=== PATIENT | female | born 1935 | race Caucasian/White ===

== ENCOUNTER → 2017-03-26 09:44 | Outpatient (CLI) | payer MEDICARE, OTHER, SELFPAY ==
[2017-03-26 15:45] LABS: Absolute Lymphocyte Count 0.97 X10^3/ul (0.83-4.51); Absolute Neutrophil Count 3.5 X10^3/uL (2.0-7.7); Basophil# 0.04 X10^3/uL; Basophil% 0.7 % (0-1); Eosinophil# 0.11 X10^3/uL; Eosinophils% 1.8 % (0-5); Hematocrit 44.6 % (37-47); Hemoglobin 14.1 g/dl (12.0-15.0); Lymphocyte # 0.97 X10^3/ul (4.0); Lymphocyte % 16.2 % (19-41); Mean Corp Hgb Conc 31.6 g/gl (32-36); Mean Corpuscular Hgb 30.2 pg (27.0-32.0); Mean Corpuscular Volume 95.5 fL (81-99); Mean Platelet Vol. 11.2 fl (6.2-12.0); Monocyte# 1.41 X10^3/uL; Monocyte% 23.5 % (0-10); Neutrophil # 3.46 X10^3/uL (2.7-7.7); Neutrophil % 57.6 % (47-70); Platelet Count 246 K/mm3 (150-450); RBC Distribution Width CV 14.2 % (11.6-14.6); RBC Distribution Width SD 49.4 fl (35.1-43.9); Red Blood Count 4.67 M/mm3 (4.2-5.4)
[2017-03-26 15:47] LABS: POSITIVE COUNT NO; POSITIVE DIFFERENTIAL NO; POSITIVE MORPHOLOGY NO
[2017-03-26 16:09] LABS: ALB/GLOB Ratio 0.8 RATIO (0.9-2.4); AST(SGOT) 22 U/L (15-37); Alanine Aminotransfer ALT/SGPT 22 U/L (13-56); Albumin, Serum 3.4 g/dL (3.2-5.0); Alkaline Phosphatase 85 U/L (45-117); Anion Gap 6 (5-15); BUN 11 mg/dL (7-18); BUN/Creat Ratio 13.5 RATIO (10-20); Calcium,Total 8.6 mg/dL (8.5-10.1); Chloride 102 mmol/L (98-107); Cholesterol 260 mg/dL (200); Creatinine, Serum 0.82 mg/dL (0.55-1.02); EST Glomerular Filtration Rate 71 mL/min (>60); Est Glom Filt Rate - Afr Amer 86 mL/min (>60); Glucose 108 mg/dL (70-110); High Density Lipoprotein 60 mg/dL; Protein, Total 7.4 g/dL (6.4-8.2); Sodium Level 138 mmol/L (136-145); Thyroid Stim Hormone (TSH) 2.24 uIU/mL (0.358-3.74); Triglycerides 116 mg/dL; Very Low Density Lipoprotein 23 mg/dL (5-40)
[2017-03-27 10:07] LABS: Vitamin D,25 Hydroxy 22.5 ng/mL (19.95-100.01)
== END ==
PROVIDERS: Family Provider Family Medicine Geriatric Medicine; PCP Family Medicine Geriatric Medicine; Visit Provider Family Medicine Geriatric Medicine
DX: E55.9 Vitamin D deficiency, unspecified (principal); E78.4 Other hyperlipidemia; I10 Essential (primary) hypertension; E03.9 Hypothyroidism, unspecified
CPT/HCPCS: 36415; 80053; 80061; 82306; 84443; 85025

== ENCOUNTER → 2017-06-24 12:53 | Outpatient (CLI) | payer MEDICARE, OTHER, SELFPAY ==
--- NOTE | 2017-06-24 13:05 | CT_ITS ---
STUDY: CT LEFT TIBIA/FIBULA WITH CONTRAST REASON FOR EXAM: Left lower leg pain and swelling for one week, painful to touch, no specific injury. TECHNIQUE: Transaxial CT imaging of the tibia/fibula was performed post contrast administration. The examination was performed with intravenous administration of 100 ml of Isovue 300 contrast material. Sagittal and coronal images were reconstructed. Individualized dose optimization techniques were used for this CT. COMPARISON: None. FINDINGS: Normal left tibia/fibula. There is mild soft tissue swelling at the medial and lateral aspects of the distal lower leg/ankle (axial images 110-149). There is no enhancing abnormality. There is a posterior calcaneal enthesophyte (sagittal reconstructions 22-28). CT/Extremity Lower WITH Contrast IMPRESSION: Mild soft tissue swelling. No demonstrated soft tissue abscess. Electronically Signed: Deep Bailey MD at 14:59 EDT Tel , Service support ,
[2017-06-24 13:30] LABS: Absolute Lymphocyte Count 1.87 X10^3/ul (0.83-4.51); Absolute Neutrophil Count 6.5 X10^3/uL (2.0-7.7); Basophil# 0.04 X10^3/uL; Basophil% 0.4 % (0-1); Eosinophil# 0.17 X10^3/uL; Eosinophils% 1.7 % (0-5); Hematocrit 43.5 % (37-47); Hemoglobin 14.2 g/dl (12.0-15.0); Lymphocyte # 1.87 X10^3/ul (4.0); Lymphocyte % 19.2 % (19-41); Mean Corp Hgb Conc 32.6 g/gl (32-36); Mean Corpuscular Hgb 30.9 pg (27.0-32.0); Mean Corpuscular Volume 94.8 fL (81-99); Mean Platelet Vol. 11.4 fl (6.2-12.0); Monocyte# 1.19 X10^3/uL; Monocyte% 12.2 % (0-10); Neutrophil # 6.46 X10^3/uL (2.7-7.7); Neutrophil % 66.3 % (47-70); Platelet Count 265 K/mm3 (150-450); RBC Distribution Width SD 47.4 fl (35.1-43.9); Red Blood Count 4.59 M/mm3 (4.2-5.4); White Blood Count 9.8 K/mm3 (4.4-11.0)
[2017-06-24 13:38] LABS: ALB/GLOB Ratio 0.9 RATIO (0.9-2.4); AST(SGOT) 21 U/L (15-37); Alanine Aminotransfer ALT/SGPT 20 U/L (13-56); Albumin, Serum 3.5 g/dL (3.2-5.0); Alkaline Phosphatase 83 U/L (45-117); Anion Gap 2 (5-15); BUN 18 mg/dL (7-18); Calcium,Total 9.4 mg/dL (8.5-10.1); Chloride 104 mmol/L (98-107); Cholesterol 277 mg/dL (200); Creatinine, Serum 0.78 mg/dL (0.55-1.02); EST Glomerular Filtration Rate 75 mL/min (>60); Est Glom Filt Rate - Afr Amer 91 mL/min (>60); Globulin 4.1 g/dL (2.2-4.2); Glucose 84 mg/dL (74-106); High Density Lipoprotein 66 mg/dL; Potassium 4.3 mmol/L (3.5-5.1); Protein, Total 7.6 g/dL (6.4-8.2); Sodium Level 139 mmol/L (136-145); Thyroid Stim Hormone (TSH) 2.16 uIU/mL (0.358-3.74); Triglycerides 109 mg/dL; Very Low Density Lipoprotein 22 mg/dL (5-40)
[2017-06-24 13:43] LABS: POSITIVE COUNT NO; POSITIVE DIFFERENTIAL NO; POSITIVE MORPHOLOGY NO
[2017-06-24 13:59] LABS: Vitamin D,25 Hydroxy 26.5 ng/mL (29.95-100.01)
== END ==
PROVIDERS: Family Provider Family Medicine Geriatric Medicine; PCP Family Medicine Geriatric Medicine; Visit Provider Family Medicine Geriatric Medicine
DX: R22.42 Localized swelling, mass and lump, left lower limb (principal); M79.605 Pain in left leg; E55.9 Vitamin D deficiency, unspecified; E78.4 Other hyperlipidemia; I10 Essential (primary) hypertension
CPT/HCPCS: 36415; 73701; 80053; 80061; 82306; 84443; 85025; Q9967

== ENCOUNTER 2017-08-19 13:01 | Emergency (ER) | payer MEDICARE, OTHER, SELFPAY ==
[2017-08-19 13:03] VITALS: BP 132/82; PULSE 108; RESP 17; TEMP 36.6; O2SAT 93; BMI 30.7
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
[2017-08-19] MEDS: Ondansetron 4 MG/2 ML Vial IV (14:03)
[2017-08-19] MEDS: 0.9% Normal Saline 1,000 ML 1000 ML IV (14:03)
[2017-08-19 14:04] VITALS: BP 93/75; PULSE 106; RESP 17; O2SAT 92; O2SAT 95
[2017-08-19] MEDS: Morphine 2 MG/ML Syringe IV (14:04)
[2017-08-19 14:11] LABS: Absolute Lymphocyte Count 3.25 X10^3/ul (0.83-4.51); Absolute Neutrophil Count 11.7 X10^3/uL (2.0-7.7); Basophil# 0.05 X10^3/uL; Basophil% 0.3 % (0-1); Eosinophil# 0.12 X10^3/uL; Eosinophils% 0.7 % (0-5); Hematocrit 42.1 % (37-47); Hemoglobin 13.6 g/dl (12.0-15.0); Lymphocyte # 3.25 X10^3/ul (4.0); Lymphocyte % 19.6 % (19-41); Mean Corp Hgb Conc 32.3 g/gl (32-36); Mean Corpuscular Hgb 30.4 pg (27.0-32.0); Mean Corpuscular Volume 94.2 fL (81-99); Mean Platelet Vol. 10.7 fl (6.2-12.0); Monocyte% 8.4 % (0-10); Neutrophil # 11.69 X10^3/uL (2.7-7.7); Neutrophil % 70.6 % (47-70); POSITIVE COUNT NO; POSITIVE DIFFERENTIAL NO; POSITIVE MORPHOLOGY NO; Platelet Count 278 K/mm3 (150-450); RBC Distribution Width CV 13.3 % (11.6-14.6); RBC Distribution Width SD 45.5 fl (35.1-43.9); Red Blood Count 4.47 M/mm3 (4.2-5.4); White Blood Count 16.6 K/mm3 (4.4-11.0)
[2017-08-19 14:28] LABS: Anion Gap 12 (5-15); BUN 17 mg/dL (7-18); Calcium,Total 9.4 mg/dL (8.5-10.1); Chloride 103 mmol/L (98-107); Creatinine, Serum 0.95 mg/dL (0.55-1.02); EST Glomerular Filtration Rate 60 mL/min (>60); Est Glom Filt Rate - Afr Amer 73 mL/min (>60); Estimated Creatinine Clearance 39.43 ml/min; Glucose 161 mg/dL (74-106); Potassium 4.4 mmol/L (3.5-5.1); Sodium Level 139 mmol/L (136-145)
[2017-08-19 14:38] LABS: International Normalized Ratio 1.1
== END 2017-08-19 14:22 | disposition short-term general hospital (02) ==
LOC: ED 14:06
PROVIDERS: Emergency Provider Emergency Medicine; Family Provider Family Medicine Geriatric Medicine; PCP Family Medicine Geriatric Medicine
DX: S20.211A Contusion of right front wall of thorax, initial encounter (principal); R10.9 Unspecified abdominal pain; R09.02 Hypoxemia; M25.512 Pain in left shoulder; M54.2 Cervicalgia; R11.0 Nausea; V89.2XXA Person injured in unspecified motor-vehicle accident, traffic, initial encounter; Y93.9 Activity, unspecified; Y92.9 Unspecified place or not applicable; Z86.39 Personal history of other endocrine, nutritional and metabolic disease; Z79.82 Long term (current) use of aspirin; Z79.899 Other long term (current) drug therapy
CPT/HCPCS: 71045; 80048; 85025; 85610; 96374; 96375; 99285; J7030; A4216; J2405

== ENCOUNTER → 2017-08-30 09:42 | Outpatient (CLI) | payer MEDICARE, OTHER, SELFPAY ==
[2017-08-30 13:06] LABS: Hematocrit 36.7 % (37-47); Hemoglobin 11.8 g/dl (12.0-15.0); Mean Corp Hgb Conc 32.2 g/gl (32-36); Mean Corpuscular Hgb 31.4 pg (27.0-32.0); Mean Corpuscular Volume 97.6 fL (81-99); Mean Platelet Vol. 10.4 fl (6.2-12.0); Platelet Count 460 K/mm3 (150-450); RBC Distribution Width CV 15.2 % (11.6-14.6); RBC Distribution Width SD 50.9 fl (35.1-43.9); Red Blood Count 3.76 M/mm3 (4.2-5.4); White Blood Count 15.2 K/mm3 (4.4-11.0)
[2017-08-30 13:08] LABS: Scan Indicated on CBC? Y/N NO
== END ==
PROVIDERS: Family Provider Family Medicine Geriatric Medicine; PCP Family Medicine Geriatric Medicine
DX: S22.39XA Fracture of one rib, unspecified side, initial encounter for closed fracture (principal)
CPT/HCPCS: 36415; 85027

== ENCOUNTER → 2017-12-31 16:21 | Outpatient (CLI) | payer MEDICARE, OTHER, SELFPAY ==
[2017-12-31 16:56] LABS: Absolute Lymphocyte Count 3.02 X10^3/ul (0.83-4.51); Absolute Neutrophil Count 5.1 X10^3/uL (2.0-7.7); Basophil# 0.05 X10^3/uL; Basophil% 0.5 % (0-1); Eosinophil# 0.25 X10^3/uL; Eosinophils% 2.6 % (0-5); Hematocrit 44.3 % (37-47); Hemoglobin 13.8 g/dl (12.0-15.0); Lymphocyte # 3.02 X10^3/ul (4.0); Lymphocyte % 31.4 % (19-41); Mean Corp Hgb Conc 31.2 g/gl (32-36); Mean Corpuscular Hgb 28.8 pg (27.0-32.0); Mean Corpuscular Volume 92.5 fL (81-99); Mean Platelet Vol. 11.6 fl (6.2-12.0); Monocyte# 1.23 X10^3/uL; Monocyte% 12.8 % (0-10); Neutrophil # 5.07 X10^3/uL (2.7-7.7); Neutrophil % 52.6 % (47-70); Platelet Count 253 K/mm3 (150-450); RBC Distribution Width CV 14.3 % (11.6-14.6); RBC Distribution Width SD 48.5 fl (35.1-43.9); Red Blood Count 4.79 M/mm3 (4.2-5.4); White Blood Count 9.6 K/mm3 (4.4-11.0)
[2017-12-31 17:00] LABS: POSITIVE COUNT NO; POSITIVE DIFFERENTIAL NO; POSITIVE MORPHOLOGY NO
[2017-12-31 17:32] LABS: ALB/GLOB Ratio 0.8 RATIO (0.9-2.4); AST(SGOT) 19 U/L (15-37); Alanine Aminotransfer ALT/SGPT 18 U/L (13-56); Albumin, Serum 3.4 g/dL (3.2-5.0); Alkaline Phosphatase 87 U/L (45-117); Anion Gap 5 (5-15); BUN 11 mg/dL (7-18); BUN/Creat Ratio 17.1 RATIO (10-20); Calcium,Total 8.6 mg/dL (8.5-10.1); Chloride 105 mmol/L (98-107); Creatinine, Serum 0.64 mg/dL (0.55-1.02); EST Glomerular Filtration Rate 94 mL/min (>60); Est Glom Filt Rate - Afr Amer 113 mL/min (>60); Glucose 88 mg/dL (74-106); Potassium 3.8 mmol/L (3.5-5.1); Protein, Total 7.4 g/dL (6.4-8.2); Sodium Level 141 mmol/L (136-145); Thyroid Stim Hormone (TSH) 0.44 uIU/mL (0.358-3.74)
[2017-12-31 17:34] LABS: Vitamin D,25 Hydroxy 45.9 ng/mL (29.95-100.01)
== END ==
PROVIDERS: Family Provider Family Medicine Geriatric Medicine; PCP Family Medicine Geriatric Medicine; Visit Provider Family Medicine Geriatric Medicine
DX: E55.9 Vitamin D deficiency, unspecified (principal); R53.83 Other fatigue
CPT/HCPCS: 36415; 80053; 82306; 84443; 85025

== ENCOUNTER 2018-01-29 12:54 | Emergency (ER) | payer MEDICARE, OTHER, SELFPAY ==
[2018-01-29 12:56] VITALS: BP 180/79; PULSE 77; RESP 18; TEMP 36.3; O2SAT 96; BMI 29.8
--- NOTE | 2018-01-29 13:10 | EKG12_ITS ---
Test Reason : LT ARM PAIN Blood Pressure : / mmHG Vent. Rate : 073 BPM Atrial Rate : 073 BPM P-R Int : 162 ms QRS Dur : 072 ms QT Int : 426 ms P-R-T Axes : 053 069 019 degrees QTc Int : 469 ms Normal sinus rhythm Normal ECG Confirmed by CARLOS SANTOS, XOCHITL ([id number]), photography editor KANE CORLEY ([id number]) on 01/31/2018 2:36:58 PM Referred By: JESSE Confirmed By:XOCHITL GONZALEZ MD
--- NOTE | 2018-01-29 13:15 | RAD_ITS ---
STUDY: X-RAY CHEST REASON FOR EXAM: Female, 82 years old. Upper back pain with left upper extremity radiation. TECHNIQUE: Single AP portable view of the chest. COMPARISON: Comparison is made with prior study dated August 19, 2017. FINDINGS: EKG electrodes are seen. Stable increased linear markings at the left lung base suggestive of a left basilar scarring. There is no demonstrated pleural abnormality. Normal size heart. Normal mediastinum and angelica. Normal visualized pulmonary arteries. There is atherosclerotic calcification of the aortic arch with tortuosity. There are degenerative changes of the visualized thoracic spine. Normal visualized ribs, clavicles, and shoulders. There is no demonstrated abnormality of the visualized soft tissue structures of the upper abdomen. RAD/Chest 1 View (Portable) IMPRESSION: Stable mild increased linear markings at the left lung base suggests of left basilar linear scarring. Electronically Signed: Fransisco Terrell MD at 13:39 EST Tel [phone], Service support ,
[2018-01-29] MEDS: Aspirin 81 MG TAB.CHEW 324 MG PO (13:17)
--- NOTE | 2018-01-29 13:24 | ED.DCSUM_ITS ---
- ER Visit Summary Date of Service: 01/29/18 Chief Complaint: Back pain History of Present Illness: The patient is a 82 F who reports getting up around 11 AM this morning. She states she shortly after developed back pain between her shoulder blades. The pain started to radiate toward her left arm. She be came concerned that it the pain was coming from her heart. She states the pain is currently improved. She denies shortness of breath or sweats with the episode. She denies paresthesias. Pain did not radiate to the anterior chest or down her back. Past history is significant for reflux, hypothyroid, high cholesterol, depression, back pain. Physical Examination: Vital signs on arrival include a blood pressure of 180/79. At the time of my exam her blood pressure is 149/85. Patient sitting upright in bed no acute distress. Head neck examination is unremarkable. Heart is regular rate and rhythm. Lung sounds are clear. Abdomen is soft nontender. Back examination reveals no reproducible tenderness. Extremity examination reveals strong distal pulses throughout. Test Results: EKG is sinus at 73 with no sign of acute ischemia. CBC and chemistry studies normal. Troponin negative. Portal chest x-ray shows stable mild increased linear markings in the left lung base suggestive of scarring. Emergency Department Course and Treatment: She was given aspirin on arrival. On repeat evaluation she is resting comfortably. Test results are discussed with the patient and daughter. We collectively agreed to do a repeat troponin and EKG 3 hours after the initial set. Repeat EKG is unchanged and repeat troponin remains less than 0.015. On final repeat eval patient is resting comfortably. Test results are discussed with her and daughter. They are both reassured with these findings and feel comfortable with discharge to home. If her symptoms recur or worsen she is to return for repeat evaluation. Treatment Plan: [] Disposition: Discharge Impression: Back pain, improved This note was generated with [employer] dictation software. It may contain incorrect words, spelling, and punctuation that were not noted in review of the chart kiet or to signing ED Disposition - Plan for ED Patient: Chief Complaint: Upper Extremity Injury Referrals: Matt Romero Chi, MD [Primary Care Provider] -
[2018-01-29] MEDS: 0.9% Normal Saline 1,000 ML 150 ML IV (13:29)
[2018-01-29 13:38] VITALS: O2SAT 97
[2018-01-29 13:41] LABS: Absolute Lymphocyte Count 2.68 X10^3/ul (0.83-4.51); Absolute Neutrophil Count 4.8 X10^3/uL (2.0-7.7); Basophil# 0.03 X10^3/uL; Basophil% 0.3 % (0-1); Eosinophil# 0.19 X10^3/uL; Eosinophils% 2.2 % (0-5); Hematocrit 44.3 % (37-47); Hemoglobin 14.3 g/dl (12.0-15.0); Lymphocyte # 2.68 X10^3/ul (4.0); Lymphocyte % 30.9 % (19-41); Mean Corp Hgb Conc 32.3 g/gl (32-36); Mean Corpuscular Hgb 29.5 pg (27.0-32.0); Mean Corpuscular Volume 91.5 fL (81-99); Mean Platelet Vol. 10.7 fl (6.2-12.0); Monocyte# 0.96 X10^3/uL; Monocyte% 11.1 % (0-10); Neutrophil % 55.4 % (47-70); POSITIVE COUNT NO; POSITIVE DIFFERENTIAL NO; POSITIVE MORPHOLOGY NO; Platelet Count 261 K/mm3 (150-450); RBC Distribution Width SD 50.5 fl (35.1-43.9); Red Blood Count 4.84 M/mm3 (4.2-5.4); White Blood Count 8.7 K/mm3 (4.4-11.0)
[2018-01-29 13:56] LABS: Anion Gap 6 (5-15); BUN 11 mg/dL (7-18); Calcium,Total 8.9 mg/dL (8.5-10.1); Chloride 106 mmol/L (98-107); Creatinine, Serum 0.69 mg/dL (0.55-1.02); EST Glomerular Filtration Rate 87 mL/min (>60); Est Glom Filt Rate - Afr Amer 105 mL/min (>60); Estimated Creatinine Clearance 36.81 ml/min; Glucose 89 mg/dL (74-106); Potassium 4.1 mmol/L (3.5-5.1); Sodium Level 143 mmol/L (136-145)
--- NOTE | 2018-01-29 16:00 | EKG12_ITS ---
Test Reason : Blood Pressure : / mmHG Vent. Rate : 067 BPM Atrial Rate : 067 BPM P-R Int : 166 ms QRS Dur : 080 ms QT Int : 432 ms P-R-T Axes : 039 083 -10 degrees QTc Int : 456 ms Sinus rhythm with Premature atrial complexes Abnormal QRS-T angle, consider primary T wave abnormality Abnormal ECG Confirmed by CARLOS SANTOS, XOCHITL ([id number]), medical transcription editor KANE CORLEY ([id number]) on 01/31/2018 2:38:52 PM Referred By: JESSE Confirmed By:XOCHITL GONZALEZ MD
--- NOTE | 2018-01-29 17:03 | ED.DEP ---
ED Disposition - Plan for ED Patient: Disposition: Home or Assisted Living Chief Complaint: Upper Extremity Injury Instructions: ED Neck Back Pain General, ED Chest Pain Atypical Unkn Cause Referrals: Matt Romero Chi, MD [Primary Care Provider] - 1-2 Weeks
[2018-01-29 17:22] VITALS: BP 148/87; PULSE 73; RESP 21; O2SAT 95
== END 2018-01-29 17:23 | disposition home or self-care (01) ==
PROVIDERS: Emergency Provider Emergency Medicine; Family Provider Family Medicine Geriatric Medicine; PCP Family Medicine Geriatric Medicine
DX: M54.9 Dorsalgia, unspecified (principal); K21.9 Gastro-esophageal reflux disease without esophagitis; E03.9 Hypothyroidism, unspecified; E78.00 Pure hypercholesterolemia, unspecified; F32.9 Major depressive disorder, single episode, unspecified; Z79.899 Other long term (current) drug therapy
CPT/HCPCS: 36415; 71045; 80048; 84484; 85025; 93005; 96360; 96361; 99285; J7030

== ENCOUNTER → 2018-02-13 14:35 | Outpatient (CLI) | payer MEDICARE, OTHER, SELFPAY ==
[2018-01-29 12:56] VITALS: BMI 29.8
--- NOTE | 2018-02-13 14:38 | RAD_ITS ---
STUDY: X-RAY - LEFT SHOULDER REASON FOR EXAM: Female, 82 years old. Increasing left shoulder pain. TECHNIQUE: 4 view(s) of the shoulder. COMPARISON: None. FINDINGS: Normal glenohumeral articulation. Normal acromioclavicular joint. Normal acromion. Normal humeral head and visualized proximal humerus. The soft tissue structures are unremarkable. Left basilar infiltrate. RAD/Shoulder min 2 Views IMPRESSION: Normal x-ray examination of the shoulder. Left basilar infiltrate. Electronically Signed: Fransisco Terrell MD at 15:01 EST Tel [phone], Service support ,
== END ==
PROVIDERS: Family Provider Family Medicine Geriatric Medicine; PCP Family Medicine Geriatric Medicine; Referring Provider Family Medicine Geriatric Medicine; Visit Provider Family Medicine Geriatric Medicine
DX: M25.512 Pain in left shoulder (principal)
CPT/HCPCS: 73030

== ENCOUNTER → 2018-02-21 15:58 | Outpatient (CLI) | payer MEDICARE, OTHER, SELFPAY ==
[2018-01-29 12:56] VITALS: BMI 29.8
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
== END ==
PROVIDERS: Family Provider Family Medicine Geriatric Medicine; PCP Family Medicine Geriatric Medicine; Visit Provider Family Medicine Geriatric Medicine
DX: Z12.31 Encounter for screening mammogram for malignant neoplasm of breast (principal)
CPT/HCPCS: 77063; 77067

== ENCOUNTER → 2018-02-28 13:15 | Outpatient (CLI) | payer MEDICARE, SELFPAY ==
[2018-01-29 12:56] VITALS: BMI 29.8
--- NOTE | 2018-02-28 13:20 | US_ITS ---
STUDY: ULTRASOUND BREAST - RIGHT REASON FOR EXAM: Female, 82 years old. Palpable lump in the right breast. TECHNIQUE: Axial and longitudinal images of the RIGHT breast were performed with a high resolution ultrasound transducer. COMPARISON: Comparison is made with prior mammogram dated February 21, 2018. FINDINGS: RIGHT Breast: The palpable abnormality corresponds to a 6.1 cm x 5.1 cm x 3.6 cm complex inhomogeneous mass with irregular borders and posterior shadowing. This is highly suggestive of a carcinoma. A biopsy is recommended. US/Breast Limited Unilateral IMPRESSION: 6.1 cm x 5.1 sided by 3.6 cm inhomogeneous irregular mass corresponding to the palpable abnormality. A biopsy strongly recommended. ASSESSMENT CATEGORY: BIRADS Category 5: Highly Suggestive of Malignancy - Appropriate Action Should Be Taken. A letter regarding these results will be sent to the patient by the facility within 30 days. Electronically Signed: Fransisco Terrell MD at 15:41 EST Tel [phone], Service support ,
== END ==
PROVIDERS: Family Provider Family Medicine Geriatric Medicine; PCP Family Medicine Geriatric Medicine; Referring Provider Family Medicine Geriatric Medicine; Visit Provider Family Medicine Geriatric Medicine
DX: N63.10 Unspecified lump in the right breast, unspecified quadrant (principal); R92.8 Other abnormal and inconclusive findings on diagnostic imaging of breast
CPT/HCPCS: 76642

== ENCOUNTER → 2018-03-05 16:48 | Outpatient (CLI) | payer MEDICARE, SELFPAY ==
[2018-03-05 13:46] VITALS: BMI 29.8
== END ==
PROVIDERS: Family Provider Family Medicine Geriatric Medicine; PCP Family Medicine Geriatric Medicine; Referring Provider Surgery; Visit Provider Surgery
DX: N64.89 Other specified disorders of breast (principal); N63.10 Unspecified lump in the right breast, unspecified quadrant
CPT/HCPCS: 87205

== ENCOUNTER → 2018-04-01 16:03 | Outpatient (CLI) | payer MEDICARE, SELFPAY ==
[2018-03-05 13:46] VITALS: BMI 29.8
[2018-04-01 16:50] LABS: Absolute Lymphocyte Count 2.43 X10^3/ul (0.83-4.51); Absolute Neutrophil Count 10.4 X10^3/uL (2.0-7.7); Basophil# 0.02 X10^3/uL; Basophil% 0.1 % (0-1); Eosinophil# 0.03 X10^3/uL; Eosinophils% 0.2 % (0-5); Hematocrit 46.8 % (37-47); Hemoglobin 15.1 g/dl (12.0-15.0); Lymphocyte # 2.43 X10^3/ul (4.0); Mean Corp Hgb Conc 32.3 g/gl (32-36); Mean Corpuscular Hgb 30.6 pg (27.0-32.0); Mean Corpuscular Volume 94.7 fL (81-99); Mean Platelet Vol. 11.2 fl (6.2-12.0); Monocyte# 1.34 X10^3/uL; Monocyte% 9.4 % (0-10); Neutrophil # 10.44 X10^3/uL (2.7-7.7); Platelet Count 273 K/mm3 (150-450); RBC Distribution Width CV 14.3 % (11.6-14.6); RBC Distribution Width SD 48.2 fl (35.1-43.9); Red Blood Count 4.94 M/mm3 (4.2-5.4); White Blood Count 14.3 K/mm3 (4.4-11.0)
[2018-04-01 16:53] LABS: POSITIVE COUNT NO; POSITIVE DIFFERENTIAL NO; POSITIVE MORPHOLOGY NO
[2018-04-01 17:24] LABS: ALB/GLOB Ratio 0.8 RATIO (0.9-2.4); AST(SGOT) 14 U/L (15-37); Alanine Aminotransfer ALT/SGPT 21 U/L (13-56); Albumin, Serum 3.4 g/dL (3.2-5.0); Alkaline Phosphatase 86 U/L (45-117); Anion Gap 8 (5-15); BUN 16 mg/dL (7-18); BUN/Creat Ratio 26.1 RATIO (10-20); Calcium,Total 8.7 mg/dL (8.5-10.1); Chloride 107 mmol/L (98-107); Creatinine, Serum 0.61 mg/dL (0.55-1.02); EST Glomerular Filtration Rate 99 mL/min (>60); Est Glom Filt Rate - Afr Amer 120 mL/min (>60); Glucose 81 mg/dL (74-106); Potassium 4.3 mmol/L (3.5-5.1); Protein, Total 7.4 g/dL (6.4-8.2); Sodium Level 142 mmol/L (136-145); Thyroid Stim Hormone (TSH) 0.51 uIU/mL (0.358-3.74)
== END ==
PROVIDERS: Family Provider Family Medicine Geriatric Medicine; PCP Family Medicine Geriatric Medicine; Visit Provider Family Medicine Geriatric Medicine
DX: E55.9 Vitamin D deficiency, unspecified (principal); I10 Essential (primary) hypertension
CPT/HCPCS: 36415; 80053; 82306; 84443; 85025

== ENCOUNTER → 2018-06-30 | Outpatient (CLI) | payer MEDICARE, SELFPAY ==
[2018-03-05 13:46] VITALS: BMI 29.8
[2018-06-30 17:07] LABS: Absolute Lymphocyte Count 2.42 X10^3/ul (0.83-4.51); Absolute Neutrophil Count 7.1 X10^3/uL (2.0-7.7); Basophil# 0.04 X10^3/uL; Basophil% 0.4 % (0-1); Eosinophil# 0.21 X10^3/uL; Hematocrit 47.1 % (37-47); Lymphocyte # 2.42 X10^3/ul (4.0); Lymphocyte % 22.9 % (19-41); Mean Corp Hgb Conc 31.8 g/gl (32-36); Mean Corpuscular Hgb 30.3 pg (27.0-32.0); Mean Corpuscular Volume 95.2 fL (81-99); Mean Platelet Vol. 11.2 fl (6.2-12.0); Monocyte% 7.6 % (0-10); Neutrophil # 7.08 X10^3/uL (2.7-7.7); Neutrophil % 66.9 % (47-70); Platelet Count 278 K/mm3 (150-450); RBC Distribution Width CV 14.3 % (11.6-14.6); RBC Distribution Width SD 48.1 fl (35.1-43.9); Red Blood Count 4.95 M/mm3 (4.2-5.4); White Blood Count 10.6 K/mm3 (4.4-11.0)
[2018-06-30 17:08] LABS: POSITIVE COUNT NO; POSITIVE DIFFERENTIAL NO; POSITIVE MORPHOLOGY NO
[2018-06-30 17:19] LABS: Vitamin D,25 Hydroxy 32.2 ng/mL (29.95-100.01)
[2018-06-30 19:33] LABS: BUN 16 mg/dL (7-18); Glucose 128 mg/dL (74-106)
[2018-06-30 19:34] LABS: AST(SGOT) 18 U/L (15-37); Albumin, Serum 3.3 g/dL (3.2-5.0); BUN/Creat Ratio 20.5 RATIO (10-20); Calcium,Total 8.8 mg/dL (8.5-10.1); Creatinine, Serum 0.78 mg/dL (0.55-1.02)
[2018-06-30 19:35] LABS: Alanine Aminotransfer ALT/SGPT 24 U/L (13-56); Alkaline Phosphatase 89 U/L (45-117); Anion Gap 7 (5-15); Chloride 105 mmol/L (98-107); Potassium 4.1 mmol/L (3.5-5.1); Sodium Level 143 mmol/L (136-145)
[2018-06-30 20:13] LABS: ALB/GLOB Ratio 0.8 RATIO (0.9-2.4); EST Glomerular Filtration Rate 75 mL/min (>60); Est Glom Filt Rate - Afr Amer 90 mL/min (>60); Globulin 4.4 g/dL (2.2-4.2); Protein, Total 7.7 g/dL (6.4-8.2)
== END | disposition home or self-care (01) ==
LOC: POLAB3 14:10
PROVIDERS: Family Provider Family Medicine Geriatric Medicine; PCP Family Medicine Geriatric Medicine; Visit Provider Family Medicine Geriatric Medicine
DX: E55.9 Vitamin D deficiency, unspecified (principal); E78.5 Hyperlipidemia, unspecified; I10 Essential (primary) hypertension
CPT/HCPCS: 36415; 80053; 82306; 84443; 85025

== ENCOUNTER → 2018-09-18 | Outpatient (CLI) | payer MEDICARE, SELFPAY ==
[2018-03-05 13:46] VITALS: BMI 29.8
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
== END | disposition home or self-care (01) ==
LOC: OPBI 14:05
PROVIDERS: Family Provider Family Medicine Geriatric Medicine; PCP Family Medicine Geriatric Medicine; Referring Provider Surgery; Visit Provider Surgery
DX: R92.8 Other abnormal and inconclusive findings on diagnostic imaging of breast (principal)
CPT/HCPCS: 76642; 77061; 77065; G0279

== ENCOUNTER → 2018-10-02 | Outpatient (CLI) | payer MEDICARE, SELFPAY ==
[2018-03-05 13:46] VITALS: BMI 29.8
[2018-10-02 17:00] LABS: Absolute Lymphocyte Count 2.66 X10^3/uL (0.83-4.51); Absolute Neutrophil Count 7.7 X10^3/uL (2.0-7.7); Basophil# 0.07 X10^3/uL; Basophil% 0.6 % (0-1); Eosinophil# 0.26 X10^3/uL; Eosinophils% 2.2 % (0-5); Hematocrit 43.5 % (37-47); Lymphocyte # 2.66 X10^3/ul (4.0); Lymphocyte % 22.7 % (19-41); Mean Corp Hgb Conc 32.2 g/dL (32-36); Mean Corpuscular Hgb 30.1 pg (27.0-32.0); Mean Corpuscular Volume 93.5 fL (81-99); Mean Platelet Vol. 11.3 fl (6.2-12.0); Monocyte# 1.01 X10^3/uL; Monocyte% 8.6 % (0-10); NRBC Flagged by Analyzer 0 % (0-5); Neutrophil # 7.68 X10^3/uL (2.7-7.7); Neutrophil % 65.4 % (47-70); Platelet Count 262 K/mm3 (150-450); RBC Distribution Width CV 13.2 % (11.6-14.6); RBC Distribution Width SD 45.1 fl (35.1-43.9); Red Blood Count 4.65 M/mm3 (4.2-5.4); White Blood Count 11.7 K/mm3 (4.4-11.0)
[2018-10-02 17:51] LABS: Vitamin D,25 Hydroxy 31.9 ng/mL (29.95-100.01)
[2018-10-02 17:52] LABS: ALB/GLOB Ratio 0.8 RATIO (0.9-2.4); AST(SGOT) 24 U/L (15-37); Alanine Aminotransfer ALT/SGPT 24 U/L (13-56); Albumin, Serum 3.4 g/dL (3.2-5.0); Alkaline Phosphatase 80 U/L (45-117); Anion Gap 10 (5-15); BUN 13 mg/dL (7-18); BUN/Creat Ratio 18.8 RATIO (10-20); Calcium,Total 9.1 mg/dL (8.5-10.1); Chloride 104 mmol/L (98-107); Creatinine, Serum 0.69 mg/dL (0.55-1.02); EST Glomerular Filtration Rate 86 mL/min (>60); Est Glom Filt Rate - Afr Amer 104 mL/min (>60); Glucose 83 mg/dL (74-106); Protein, Total 7.4 g/dL (6.4-8.2); Sodium Level 141 mmol/L (136-145); Thyroid Stim Hormone (TSH) 0.56 uIU/mL (0.358-3.74)
== END | disposition home or self-care (01) ==
LOC: POLAB3 13:28
PROVIDERS: Family Provider Family Medicine Geriatric Medicine; PCP Family Medicine Geriatric Medicine; Visit Provider Family Medicine Geriatric Medicine
DX: E55.9 Vitamin D deficiency, unspecified (principal); I10 Essential (primary) hypertension
CPT/HCPCS: 36415; 80053; 82306; 84443; 85025

== ENCOUNTER → 2018-11-25 | Outpatient (REF) | payer MEDICARE, SELFPAY ==
[2018-03-05 13:46] VITALS: BMI 29.8
[2018-11-25 08:27] LABS: Hematocrit 43.6 % (37-47); Hemoglobin 13.9 g/dL (12.0-15.0); Mean Corp Hgb Conc 31.9 g/dL (32-36); Mean Corpuscular Hgb 29.9 pg (27.0-32.0); Mean Corpuscular Volume 93.8 fL (81-99); Platelet Count 252 K/mm3 (150-450); RBC Distribution Width CV 13.4 % (11.6-14.6); RBC Distribution Width SD 46.3 fl (35.1-43.9); Red Blood Count 4.65 M/mm3 (4.2-5.4); White Blood Count 8.7 K/mm3 (4.4-11.0)
[2018-11-25 08:43] LABS: Vitamin D,25 Hydroxy 30.8 ng/mL (29.95-100.01)
[2018-11-25 08:58] LABS: Anion Gap 6 (5-15); BUN 11 mg/dL (7-18); BUN/Creat Ratio 16.6 RATIO (10-20); Calcium,Total 8.8 mg/dL (8.5-10.1); Chloride 108 mmol/L (98-107); Creatinine, Serum 0.66 mg/dL (0.55-1.02); EST Glomerular Filtration Rate 91 mL/min (>60); Est Glom Filt Rate - Afr Amer 110 mL/min (>60); Glucose 108 mg/dL (74-106); Potassium 4.1 mmol/L (3.5-5.1); Sodium Level 143 mmol/L (136-145); Thyroid Stim Hormone (TSH) 0.52 uIU/mL (0.358-3.74)
== END | disposition home or self-care (01) ==
LOC: OLS.WHLTSB 06:45
PROVIDERS: Visit Provider Family Medicine
DX: E03.9 Hypothyroidism, unspecified (principal); I10 Essential (primary) hypertension; E55.9 Vitamin D deficiency, unspecified
CPT/HCPCS: 36415; 80048; 82306; 84443; 85027

== ENCOUNTER → 2019-03-03 05:00 | Outpatient (REF) | payer MEDICARE, SELFPAY ==
[2018-03-05 13:46] VITALS: BMI 29.8
[2019-03-03 07:32] LABS: Hematocrit 41.4 % (37-47); Hemoglobin 13.3 g/dL (12.0-15.0); Mean Corp Hgb Conc 32.1 g/dL (32-36); Mean Corpuscular Hgb 29.6 pg (27.0-32.0); Mean Platelet Vol. 10.5 fl (6.2-12.0); Platelet Count 260 K/mm3 (150-450); RBC Distribution Width CV 14.3 % (11.6-14.6); RBC Distribution Width SD 48.5 fl (35.1-43.9); White Blood Count 8.1 K/mm3 (4.4-11.0)
[2019-03-03 07:54] LABS: Anion Gap 1 (5-15); BUN 8 mg/dL (7-18); BUN/Creat Ratio 12.4 RATIO (10-20); Calcium,Total 8.9 mg/dL (8.5-10.1); Chloride 108 mmol/L (98-107); Creatinine, Serum 0.65 mg/dL (0.55-1.02); EST Glomerular Filtration Rate 93 mL/min (>60); Est Glom Filt Rate - Afr Amer 112 mL/min (>60); Glucose 126 mg/dL (74-106); Potassium 4.2 mmol/L (3.5-5.1); Sodium Level 139 mmol/L (136-145); Thyroid Stim Hormone (TSH) 1.62 uIU/mL (0.358-3.74)
== END ==
LOC: OLS.WHLTSB 05:00
PROVIDERS: Family Provider Family Medicine Geriatric Medicine; PCP Family Medicine Geriatric Medicine; Visit Provider Family Medicine
DX: I10 Essential (primary) hypertension (principal)
CPT/HCPCS: 36415; 80048; 84443; 85027

== ENCOUNTER → 2019-03-23 11:03 | Outpatient (CLI) | payer MEDICARE, SELFPAY ==
[2018-03-05 13:46] VITALS: BMI 29.8
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
== END ==
PROVIDERS: PCP Family Medicine Geriatric Medicine; Referring Provider Surgery; Visit Provider Surgery
DX: R92.8 Other abnormal and inconclusive findings on diagnostic imaging of breast (principal)
CPT/HCPCS: 76642

== ENCOUNTER → 2019-04-29 12:45 | Outpatient (REF) | payer MEDICARE, SELFPAY ==
[2019-03-25 13:50] VITALS: BMI 29.8
[2019-04-29 14:52] LABS: Erythrocyte Sedimentation Rate 42 mm/hr (0-30)
[2019-04-29 14:55] LABS: Hematocrit 40.3 % (37-47); Hemoglobin 12.5 g/dL (12.0-15.0); Mean Corpuscular Volume 88.8 fL (81-99); Red Blood Count 4.54 M/mm3 (4.2-5.4); White Blood Count 10.5 K/mm3 (4.4-11.0)
[2019-04-29 14:56] LABS: Absolute Lymphocyte Count 1.86 X10^3/uL (0.83-4.51); Absolute Neutrophil Count 7.6 X10^3/uL (2.0-7.7); Basophil# 0.05 X10^3/uL; Basophil% 0.5 % (0-1); Eosinophil# 0.17 X10^3/uL; Eosinophils% 1.6 % (0-5); Lymphocyte # 1.86 X10^3/ul (4.0); Lymphocyte % 17.8 % (19-41); Mean Corpuscular Hgb 27.5 pg (27.0-32.0); Mean Platelet Vol. 10.6 fl (6.2-12.0); Monocyte# 0.66 X10^3/uL; Monocyte% 6.3 % (0-10); NRBC Flagged by Analyzer 0 % (0-5); Neutrophil % 72.7 % (47-70); Platelet Count 281 K/mm3 (150-450); RBC Distribution Width CV 13.5 % (11.6-14.6); RBC Distribution Width SD 43.8 fl (35.1-43.9)
== END ==
LOC: OLS.WHLTSB 12:45
PROVIDERS: PCP Family Medicine Geriatric Medicine; Visit Provider Family Medicine
DX: I10 Essential (primary) hypertension (principal); F01.50 Vascular dementia, unspecified severity, without behavioral disturbance, psychotic disturbance, mood disturbance, and anxiety; R60.9 Edema, unspecified; L03.116 Cellulitis of left lower limb; E55.9 Vitamin D deficiency, unspecified
CPT/HCPCS: 36415; 85025; 85652

== ENCOUNTER → 2019-04-30 15:21 | Outpatient (CLI) | payer MEDICARE, SELFPAY ==
[2019-03-25 13:50] VITALS: BMI 29.8
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
== END ==
PROVIDERS: PCP Family Medicine Geriatric Medicine; Referring Provider Family Medicine
DX: R51 Headache (principal)
CPT/HCPCS: 70450

== ENCOUNTER → 2019-07-14 06:00 | Outpatient (REF) | payer MEDICARE, SELFPAY ==
[2019-03-25 13:50] VITALS: BMI 29.8
[2019-07-14 08:18] LABS: Hematocrit 44.1 % (37-47); Hemoglobin 14.1 g/dL (12.0-15.0); Mean Corpuscular Hgb 29.6 pg (27.0-32.0); Mean Corpuscular Volume 92.6 fL (81-99); Mean Platelet Vol. 11.6 fl (6.2-12.0); Platelet Count 252 K/mm3 (150-450); RBC Distribution Width CV 16.5 % (11.6-14.6); RBC Distribution Width SD 56.3 fl (35.1-43.9); Red Blood Count 4.76 M/mm3 (4.2-5.4); White Blood Count 7.7 K/mm3 (4.4-11.0)
[2019-07-14 09:18] LABS: Anion Gap 10 (5-15); BUN 12 mg/dL (7-18); BUN/Creat Ratio 13.3 RATIO (10-20); Calcium,Total 9.3 mg/dL (8.5-10.1); Chloride 98 mmol/L (98-107); EST Glomerular Filtration Rate 63 mL/min (>60); Est Glom Filt Rate - Afr Amer 76 mL/min (>60); Glucose 108 mg/dL (74-106); Sodium Level 138 mmol/L (136-145)
== END ==
LOC: OLS.WHLTSB 06:00
PROVIDERS: PCP Family Medicine Geriatric Medicine; Visit Provider Family Medicine
DX: I10 Essential (primary) hypertension (principal)
CPT/HCPCS: 36415; 80048; 84443; 85027

== ENCOUNTER → 2019-08-14 05:00 | Outpatient (REF) | payer MEDICARE, SELFPAY ==
[2019-03-25 13:50] VITALS: BMI 29.8
== END ==
LOC: OLS.WHLTSB 05:00
PROVIDERS: PCP Family Medicine Geriatric Medicine; Visit Provider Family Medicine
DX: E03.9 Hypothyroidism, unspecified (principal); F01.50 Vascular dementia, unspecified severity, without behavioral disturbance, psychotic disturbance, mood disturbance, and anxiety; F03.90 Unspecified dementia, unspecified severity, without behavioral disturbance, psychotic disturbance, mood disturbance, and anxiety; L08.9 Local infection of the skin and subcutaneous tissue, unspecified; R51 Headache; R60.9 Edema, unspecified
CPT/HCPCS: 36415; 84443

== ENCOUNTER → 2019-09-01 06:55 | Outpatient (REF) | payer MEDICARE, SELFPAY ==
[2019-03-25 13:50] VITALS: BMI 29.8
[2019-09-01 07:56] LABS: Hematocrit 41.3 % (37-47); Hemoglobin 13.1 g/dL (12.0-15.0); Mean Corp Hgb Conc 31.7 g/dL (32-36); Mean Corpuscular Hgb 31.2 pg (27.0-32.0); Mean Corpuscular Volume 98.3 fL (81-99); Mean Platelet Vol. 10.8 fl (6.2-12.0); Platelet Count 233 K/mm3 (150-450); White Blood Count 8.9 K/mm3 (4.4-11.0)
[2019-09-01 08:14] LABS: Anion Gap 5 (5-15); BUN 11 mg/dL (7-18); BUN/Creat Ratio 15.7 RATIO (10-20); Calcium,Total 8.4 mg/dL (8.5-10.1); Chloride 106 mmol/L (98-107); EST Glomerular Filtration Rate 84 mL/min (>60); Est Glom Filt Rate - Afr Amer 102 mL/min (>60); Glucose 104 mg/dL (74-106); Potassium 3.7 mmol/L (3.5-5.1); Sodium Level 142 mmol/L (136-145)
== END ==
LOC: OLS.WHLTSB 06:55
PROVIDERS: PCP Family Medicine Geriatric Medicine; Visit Provider Family Medicine
DX: I10 Essential (primary) hypertension (principal); F01.50 Vascular dementia, unspecified severity, without behavioral disturbance, psychotic disturbance, mood disturbance, and anxiety; L08.9 Local infection of the skin and subcutaneous tissue, unspecified; R51 Headache; R60.9 Edema, unspecified; L03.116 Cellulitis of left lower limb; J20.9 Acute bronchitis, unspecified
CPT/HCPCS: 36415; 80048; 84443; 85027

== ENCOUNTER → 2019-09-21 13:53 | Outpatient (CLI) | payer MEDICARE, SELFPAY ==
[2019-03-25 13:50] VITALS: BMI 29.8
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
== END ==
PROVIDERS: PCP Family Medicine Geriatric Medicine; Referring Provider Surgery; Visit Provider Surgery
DX: Z12.31 Encounter for screening mammogram for malignant neoplasm of breast (principal)
CPT/HCPCS: 77063; 77067

== ENCOUNTER → 2019-09-25 05:00 | Outpatient (REF) | payer MEDICARE, SELFPAY ==
[2019-03-25 13:50] VITALS: BMI 29.8
[2019-09-25 08:24] LABS: T4 Free Direct 1.09 ng/dL (0.76-1.46)
== END ==
LOC: OLS.WHLTSB 05:00
PROVIDERS: PCP Family Medicine Geriatric Medicine; Visit Provider Family Medicine
DX: E03.9 Hypothyroidism, unspecified (principal); F01.50 Vascular dementia, unspecified severity, without behavioral disturbance, psychotic disturbance, mood disturbance, and anxiety; K64.8 Other hemorrhoids; F03.90 Unspecified dementia, unspecified severity, without behavioral disturbance, psychotic disturbance, mood disturbance, and anxiety; L08.9 Local infection of the skin and subcutaneous tissue, unspecified; R51 Headache
CPT/HCPCS: 36415; 84439; 84443

== ENCOUNTER → 2019-09-28 13:48 | Outpatient (CLI) | payer MEDICARE, SELFPAY ==
[2019-03-25 13:50] VITALS: BMI 29.8
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
== END ==
PROVIDERS: PCP Family Medicine Geriatric Medicine; Referring Provider Surgery; Visit Provider Surgery
DX: N64.89 Other specified disorders of breast (principal)
CPT/HCPCS: 76642

== ENCOUNTER → 2019-10-08 | Outpatient (CLI) | payer MEDICARE, SELFPAY ==
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
--- NOTE | 2019-10-08 14:00 | FLU_PTH ---
PATIENT: JOSE PAGAN LOC: [facility] U#:[id number] AGE/SX: 83/F ROOM: RE10/08/[address]: Dr. Yakov Oseguera MD : 1935 BED: DIS: 10/08/2019 SPEC #: [id number] RECD: 10/08/19 15:13 STATUS: ROSALINDA BERTA #: [id number] JAIR: 10/08/19 14:[address]: Yakov Oseguera DEPT: CYTOLOGY RECD BY: Jayson Jackson ENTERED: 10/09/19 07:43 SP TYPE: Fluid OTHR DR: Dr. Matt Romero MD Tissues: Right breast, NOS Procedures: Special Stain Group II Surgery Specimen Level IV Cytospin Fluid HEADER OPERATION: Not noted PRE-OP DIAGNOSIS: Right breast lesion TISSUE SUBMITTED: Right breast fluid for cytology DIAGNOSIS CYTOLOGY Right breast fluid for cytology (cytospin and cell block): Negative for malignant cells. See cytology study and comment. SJ:deisy 10/12/19 COMMENT Correlation with clinical, radiologic findings and appropriate follow up are necessary. Please make reference to corresponding surgical specimen ([id number]) right breast tissue, core biopsy with diagnosis of fragments of fibroadipose tissue with fat necrosis, chronic inflammation, old hemorrhage and extensive foreign body giant reaction. CYTOLOGY STUDY Slides are reviewed. The specimen consists of numerous foreign body giant cells. CYTOLOGY GROSS Received is 4 ml of cloudy red fluid labeled with the patient's name and and designated per the requisition as right breast. Submitted for cytology preparation including cell block. / deisy 10/09/19 TC:5 CPT: 37631, 71926
[2019-10-08 14:29] VITALS: BMI 29.8
== END | disposition home or self-care (01) ==
LOC: LABSPEC 15:40
PROVIDERS: PCP Family Medicine Geriatric Medicine; Referring Provider Surgery; Visit Provider Surgery
DX: R92.8 Other abnormal and inconclusive findings on diagnostic imaging of breast (principal)
CPT/HCPCS: 88108; 88305; 88313

== ENCOUNTER → 2019-12-01 05:00 | Outpatient (REF) | payer MEDICARE, SELFPAY ==
[2019-10-08 14:29] VITALS: BMI 29.8
[2019-12-01 07:46] LABS: Hematocrit 41.2 % (37-47); Mean Corp Hgb Conc 31.6 g/dL (32-36); Mean Corpuscular Hgb 29.4 pg (27.0-32.0); Mean Corpuscular Volume 93.2 fL (81-99); Platelet Count 274 K/mm3 (150-450); RBC Distribution Width CV 13.7 % (11.6-14.6); RBC Distribution Width SD 46.3 fl (35.1-43.9); Red Blood Count 4.42 M/mm3 (4.2-5.4); White Blood Count 8.7 K/mm3 (4.4-11.0)
[2019-12-01 08:19] LABS: Anion Gap 3 (5-15); BUN 12 mg/dL (7-18); BUN/Creat Ratio 17.4 RATIO (10-20); Chloride 108 mmol/L (98-107); Cholesterol 136 mg/dL (200); Creatinine, Serum 0.69 mg/dL (0.55-1.02); EST Glomerular Filtration Rate 86 mL/min (>60); Est Glom Filt Rate - Afr Amer 104 mL/min (>60); Glucose 101 mg/dL (74-106); High Density Lipoprotein 55 mg/dL; Potassium 3.9 mmol/L (3.5-5.1); Sodium Level 142 mmol/L (136-145); Thyroid Stim Hormone (TSH) 1.34 uIU/mL (0.358-3.74); Triglycerides 85 mg/dL; Very Low Density Lipoprotein 17 mg/dL (5-40)
[2019-12-02 08:26] LABS: Vitamin D,25 Hydroxy 49.9 ng/mL
== END ==
LOC: OLS.WHLTSB 05:00
PROVIDERS: PCP Family Medicine Geriatric Medicine; Visit Provider Family Medicine
DX: F01.50 Vascular dementia, unspecified severity, without behavioral disturbance, psychotic disturbance, mood disturbance, and anxiety (principal); E03.9 Hypothyroidism, unspecified; I10 Essential (primary) hypertension; L08.9 Local infection of the skin and subcutaneous tissue, unspecified; R51.9 Headache, unspecified; R60.9 Edema, unspecified; L03.116 Cellulitis of left lower limb; J20.9 Acute bronchitis, unspecified
CPT/HCPCS: 36415; 80048; 80061; 82306; 84443; 85027

== ENCOUNTER → 2020-03-29 05:00 | Outpatient (REF) | payer MEDICARE, SELFPAY ==
[2019-10-08 14:29] VITALS: BMI 29.8
[2020-03-29 08:15] LABS: Hematocrit 40.8 % (37-47); Mean Corp Hgb Conc 31.9 g/dL (32-36); Mean Corpuscular Volume 90.9 fL (81-99); Mean Platelet Vol. 10.4 fl (6.2-12.0); Platelet Count 228 K/mm3 (150-450); RBC Distribution Width SD 43.7 fl (35.1-43.9); Red Blood Count 4.49 M/mm3 (4.2-5.4); White Blood Count 5.2 K/mm3 (4.4-11.0)
[2020-03-29 08:45] LABS: Anion Gap 6 (5-15); BUN 14 mg/dL (7-18); BUN/Creat Ratio 23.6 RATIO (10-20); Calcium,Total 8.7 mg/dL (8.5-10.1); Chloride 106 mmol/L (98-107); Creatinine, Serum 0.59 mg/dL (0.55-1.02); EST Glomerular Filtration Rate 102 mL/min (>60); Est Glom Filt Rate - Afr Amer 124 mL/min (>60); Glucose 96 mg/dL (74-106); Potassium 3.9 mmol/L (3.5-5.1); Sodium Level 139 mmol/L (136-145); Thyroid Stim Hormone (TSH) 0.68 uIU/mL (0.358-3.74)
== END ==
LOC: OLS.WHLTSB 05:00
PROVIDERS: PCP Family Medicine Geriatric Medicine; Visit Provider Family Medicine
DX: I10 Essential (primary) hypertension (principal); F01.50 Vascular dementia, unspecified severity, without behavioral disturbance, psychotic disturbance, mood disturbance, and anxiety; K64.8 Other hemorrhoids; F03.90 Unspecified dementia, unspecified severity, without behavioral disturbance, psychotic disturbance, mood disturbance, and anxiety; L08.9 Local infection of the skin and subcutaneous tissue, unspecified; R51.9 Headache, unspecified
CPT/HCPCS: 36415; 80048; 84443; 85027

== ENCOUNTER → 2020-05-31 05:00 | Outpatient (REF) | payer MEDICARE, SELFPAY ==
[2019-10-08 14:29] VITALS: BMI 29.8
[2020-05-31 08:14] LABS: Hematocrit 42.3 % (37-47); Hemoglobin 13.2 g/dL (12.0-15.0); Mean Corp Hgb Conc 31.2 g/dL (32-36); Mean Corpuscular Hgb 28.5 pg (27.0-32.0); Mean Corpuscular Volume 91.4 fL (81-99); Mean Platelet Vol. 10.9 fl (6.2-12.0); Platelet Count 238 K/mm3 (150-450); RBC Distribution Width CV 13.6 % (11.6-14.6); RBC Distribution Width SD 45.6 fl (35.1-43.9); Red Blood Count 4.63 M/mm3 (4.2-5.4); White Blood Count 4.9 K/mm3 (4.4-11.0)
[2020-05-31 08:36] LABS: Anion Gap 6 (5-15); BUN 13 mg/dL (7-18); BUN/Creat Ratio 20.2 RATIO (10-20); Calcium,Total 8.7 mg/dL (8.5-10.1); Chloride 104 mmol/L (98-107); Creatinine, Serum 0.64 mg/dL (0.55-1.02); EST Glomerular Filtration Rate 93 mL/min (>60); Est Glom Filt Rate - Afr Amer 112 mL/min (>60); Glucose 97 mg/dL (74-106); Potassium 3.6 mmol/L (3.5-5.1); Sodium Level 139 mmol/L (136-145); Thyroid Stim Hormone (TSH) 0.69 uIU/mL (0.358-3.74)
[2020-05-31 08:40] LABS: Vitamin D,25 Hydroxy 43.5 ng/mL
[2020-06-01 04:31] LABS: Cholesterol 137 mg/dL (200); High Density Lipoprotein 49 mg/dL; Triglycerides 136 mg/dL; Very Low Density Lipoprotein 27 mg/dL (5-40)
== END ==
LOC: OLS.WHLTSB 05:00
PROVIDERS: PCP Family Medicine Geriatric Medicine; Referring Provider Family Medicine; Visit Provider Family Medicine
DX: I10 Essential (primary) hypertension (principal); F01.50 Vascular dementia, unspecified severity, without behavioral disturbance, psychotic disturbance, mood disturbance, and anxiety; K64.8 Other hemorrhoids; F03.90 Unspecified dementia, unspecified severity, without behavioral disturbance, psychotic disturbance, mood disturbance, and anxiety; L08.9 Local infection of the skin and subcutaneous tissue, unspecified; R51.9 Headache, unspecified; E55.9 Vitamin D deficiency, unspecified; E03.9 Hypothyroidism, unspecified; L03.116 Cellulitis of left lower limb; J20.9 Acute bronchitis, unspecified
CPT/HCPCS: 36415; 80048; 80061; 82306; 84443; 85027

== ENCOUNTER → 2020-06-06 | Outpatient (CLI) | payer MEDICARE, SELFPAY ==
[2019-10-08 14:29] VITALS: BMI 29.8
== END | disposition home or self-care (01) ==
PROVIDERS: Visit Provider Family Medicine
DX: Z03.818 Encounter for observation for suspected exposure to other biological agents ruled out (principal)
CPT/HCPCS: 87635; U0002

== ENCOUNTER → 2020-07-11 10:00 | Outpatient (REF) | payer MEDICARE, SELFPAY ==
[2019-10-08 14:29] VITALS: BMI 29.8
[2020-07-12 08:34] LABS: Color, Urine Yellow (Yellow); Glucose, Dipstick Normal (Normal); Ketone-Dipstick Negative (Negative); Leukocyte Esterase-Dipstick Negative /ul (Negative); Nitrite-Dipstick Negative (Negative); Occult Blood-Urine Negative /ul (Negative); Protein-Dipstick Negative (Negative); Urine Bilirubin Dipstick Negative (Negative); Urine Clarity Clear (Clear); Urine Urobilinogen Normal (Normal)
== END ==
LOC: OLS.WHLTSB 10:00
PROVIDERS: Referring Provider Family Medicine; Visit Provider Family Medicine
DX: N39.0 Urinary tract infection, site not specified (principal); F01.50 Vascular dementia, unspecified severity, without behavioral disturbance, psychotic disturbance, mood disturbance, and anxiety; F03.90 Unspecified dementia, unspecified severity, without behavioral disturbance, psychotic disturbance, mood disturbance, and anxiety; K64.8 Other hemorrhoids; L08.9 Local infection of the skin and subcutaneous tissue, unspecified
CPT/HCPCS: 81002; 87086; 87088

== ENCOUNTER → 2020-08-19 20:45 | Outpatient (REF) | payer MEDICARE, SELFPAY ==
[2019-10-08 14:29] VITALS: BMI 29.8
== END ==
LOC: OLS.WHLTSB 20:45
PROVIDERS: Visit Provider Family Medicine
DX: J18.9 Pneumonia, unspecified organism (principal); F01.50 Vascular dementia, unspecified severity, without behavioral disturbance, psychotic disturbance, mood disturbance, and anxiety; R09.81 Nasal congestion; N39.0 Urinary tract infection, site not specified; K64.8 Other hemorrhoids; F03.90 Unspecified dementia, unspecified severity, without behavioral disturbance, psychotic disturbance, mood disturbance, and anxiety
CPT/HCPCS: 87449

== ENCOUNTER → 2020-08-30 05:00 | Outpatient (REF) | payer MEDICARE, SELFPAY ==
[2019-10-08 14:29] VITALS: BMI 29.8
[2020-08-30 07:45] LABS: Hematocrit 41.2 % (37-47); Hemoglobin 13.1 g/dL (12.0-15.0); Mean Corp Hgb Conc 31.8 g/dL (32-36); Mean Corpuscular Hgb 27.7 pg (27.0-32.0); Mean Corpuscular Volume 87.1 fL (81-99); Mean Platelet Vol. 10.7 fl (6.2-12.0); Platelet Count 229 K/mm3 (150-450); RBC Distribution Width CV 14.2 % (11.6-14.6); RBC Distribution Width SD 45.7 fl (35.1-43.9); Red Blood Count 4.73 M/mm3 (4.2-5.4); White Blood Count 4.2 K/mm3 (4.4-11.0)
[2020-08-30 08:19] LABS: Anion Gap 3 (5-15); BUN 12 mg/dL (7-18); BUN/Creat Ratio 17.4 RATIO (10-20); Calcium,Total 8.6 mg/dL (8.5-10.1); Chloride 106 mmol/L (98-107); Creatinine, Serum 0.69 mg/dL (0.55-1.02); EST Glomerular Filtration Rate 86 mL/min (>60); Est Glom Filt Rate - Afr Amer 104 mL/min (>60); Glucose 100 mg/dL (74-106); Potassium 3.8 mmol/L (3.5-5.1); Sodium Level 138 mmol/L (136-145)
== END ==
LOC: OLS.WHLTSB 05:00
PROVIDERS: Visit Provider Family Medicine
DX: I10 Essential (primary) hypertension (principal); E03.9 Hypothyroidism, unspecified; F01.50 Vascular dementia, unspecified severity, without behavioral disturbance, psychotic disturbance, mood disturbance, and anxiety; J18.9 Pneumonia, unspecified organism; R09.81 Nasal congestion; N39.0 Urinary tract infection, site not specified; K64.8 Other hemorrhoids
CPT/HCPCS: 36415; 80048; 84443; 85027

== ENCOUNTER → 2020-11-29 05:00 | Outpatient (REF) | payer MEDICARE, SELFPAY ==
[2020-11-29 10:19] LABS: Hematocrit 42.7 % (37-47); Hemoglobin 13.3 g/dL (12.0-15.0); Mean Corp Hgb Conc 31.1 g/dL (32-36); Mean Corpuscular Hgb 27.8 pg (27.0-32.0); Mean Corpuscular Volume 89.1 fL (81-99); Mean Platelet Vol. 10.5 fl (6.2-12.0); Platelet Count 230 K/mm3 (150-450); RBC Distribution Width CV 14.1 % (11.6-14.6); RBC Distribution Width SD 46.3 fl (35.1-43.9); Red Blood Count 4.79 M/mm3 (4.2-5.4); White Blood Count 4.1 K/mm3 (4.4-11.0)
[2020-11-29 10:34] LABS: Vitamin D,25 Hydroxy 53.1 ng/mL
[2020-11-29 10:47] LABS: Anion Gap 6 (5-15); BUN 12 mg/dL (7-18); BUN/Creat Ratio 19.9 RATIO (10-20); Calcium,Total 8.5 mg/dL (8.5-10.1); Chloride 105 mmol/L (98-107); EST Glomerular Filtration Rate 100 mL/min (>60); Est Glom Filt Rate - Afr Amer 121 mL/min (>60); Glucose 117 mg/dL (74-106); Potassium 3.5 mmol/L (3.5-5.1); Sodium Level 140 mmol/L (136-145); Thyroid Stim Hormone (TSH) 1.44 uIU/mL (0.358-3.74)
== END ==
LOC: OLS.WHLTSB 05:00
PROVIDERS: Visit Provider Family Medicine
DX: I10 Essential (primary) hypertension (principal); F01.50 Vascular dementia, unspecified severity, without behavioral disturbance, psychotic disturbance, mood disturbance, and anxiety; J18.9 Pneumonia, unspecified organism; R09.81 Nasal congestion; N39.0 Urinary tract infection, site not specified; K64.8 Other hemorrhoids; F03.90 Unspecified dementia, unspecified severity, without behavioral disturbance, psychotic disturbance, mood disturbance, and anxiety; E55.9 Vitamin D deficiency, unspecified
CPT/HCPCS: 36415; 80048; 82306; 84443; 85027

== ENCOUNTER → 2021-02-28 | Outpatient (REF) | payer MEDICARE, SELFPAY ==
[2021-02-28 09:13] LABS: Hematocrit 42.6 % (37-47); Hemoglobin 13.7 g/dL (12.0-15.0); Mean Corp Hgb Conc 32.2 g/dL (32-36); Mean Corpuscular Volume 86.9 fL (81-99); Mean Platelet Vol. 10.8 fl (6.2-12.0); Platelet Count 260 K/mm3 (150-450); RBC Distribution Width SD 44.6 fl (35.1-43.9); White Blood Count 4.3 K/mm3 (4.4-11.0)
[2021-02-28 09:34] LABS: Anion Gap 4 (5-15); BUN 12 mg/dL (7-18); BUN/Creat Ratio 17.5 RATIO (10-20); Calcium,Total 9.2 mg/dL (8.5-10.1); Chloride 103 mmol/L (98-107); Creatinine, Serum 0.69 mg/dL (0.55-1.02); EST Glomerular Filtration Rate 86 mL/min (>60); Est Glom Filt Rate - Afr Amer 104 mL/min (>60); Glucose 125 mg/dL (74-106); Potassium 3.8 mmol/L (3.5-5.1); Sodium Level 139 mmol/L (136-145); Thyroid Stim Hormone (TSH) 2.02 uIU/mL (0.358-3.74)
== END | disposition home or self-care (01) ==
LOC: OLS.WHLTSB 05:00
PROVIDERS: Visit Provider Family Medicine
DX: I10 Essential (primary) hypertension (principal); F01.50 Vascular dementia, unspecified severity, without behavioral disturbance, psychotic disturbance, mood disturbance, and anxiety; J18.9 Pneumonia, unspecified organism; R09.81 Nasal congestion; N39.0 Urinary tract infection, site not specified; K64.8 Other hemorrhoids
CPT/HCPCS: 36415; 80048; 84443; 85027

== ENCOUNTER → 2021-05-30 | Outpatient (REF) | payer MEDICARE, SELFPAY ==
[2021-05-30 07:23] LABS: Hematocrit 42.7 % (37-47); Hemoglobin 13.7 g/dL (12.0-15.0); Mean Corp Hgb Conc 32.1 g/dL (32-36); Mean Corpuscular Hgb 27.5 pg (27.0-32.0); Mean Corpuscular Volume 85.6 fL (81-99); Mean Platelet Vol. 11.3 fl (6.2-12.0); Platelet Count 217 K/mm3 (150-450); RBC Distribution Width CV 15.3 % (11.6-14.6); RBC Distribution Width SD 47.8 fl (35.1-43.9); Red Blood Count 4.99 M/mm3 (4.2-5.4); White Blood Count 4.4 K/mm3 (4.4-11.0)
[2021-05-30 08:11] LABS: Anion Gap 4 (5-15); BUN 14 mg/dL (7-18); BUN/Creat Ratio 21.4 RATIO (10-20); Calcium,Total 8.7 mg/dL (8.5-10.1); Chloride 106 mmol/L (98-107); Cholesterol 194 mg/dL (200); Creatinine, Serum 0.65 mg/dL (0.55-1.02); EST Glomerular Filtration Rate 91 mL/min (>60); Est Glom Filt Rate - Afr Amer 110 mL/min (>60); Glucose 112 mg/dL (74-106); High Density Lipoprotein 39 mg/dL; Potassium 3.9 mmol/L (3.5-5.1); Sodium Level 137 mmol/L (136-145); Thyroid Stim Hormone (TSH) 1.38 uIU/mL (0.358-3.74); Triglycerides 102 mg/dL; Very Low Density Lipoprotein 20 mg/dL (5-40)
[2021-05-30 08:57] LABS: Vitamin D,25 Hydroxy 48.2 ng/mL
== END | disposition home or self-care (01) ==
LOC: OLS.WHLTSB 05:00
PROVIDERS: Visit Provider Family Medicine
DX: I10 Essential (primary) hypertension (principal); F01.50 Vascular dementia, unspecified severity, without behavioral disturbance, psychotic disturbance, mood disturbance, and anxiety; F03.90 Unspecified dementia, unspecified severity, without behavioral disturbance, psychotic disturbance, mood disturbance, and anxiety; J18.9 Pneumonia, unspecified organism; R09.81 Nasal congestion; N39.0 Urinary tract infection, site not specified; K64.8 Other hemorrhoids; E55.9 Vitamin D deficiency, unspecified
CPT/HCPCS: 36415; 80048; 80061; 82306; 84443; 85027

== ENCOUNTER → 2021-11-28 | Outpatient (REF) | payer MEDICARE, SELFPAY ==
[2021-11-28 09:20] LABS: Hematocrit 42.4 % (37-47); Hemoglobin 13.3 g/dL (12.0-15.0); Mean Corp Hgb Conc 31.4 g/dL (32-36); Mean Corpuscular Hgb 27.3 pg (27.0-32.0); Mean Corpuscular Volume 87.1 fL (81-99); Mean Platelet Vol. 11.1 fl (6.2-12.0); Platelet Count 237 K/mm3 (150-450); RBC Distribution Width CV 15.1 % (11.6-14.6); RBC Distribution Width SD 48.3 fl (35.1-43.9); Red Blood Count 4.87 M/mm3 (4.2-5.4); White Blood Count 3.9 K/mm3 (4.4-11.0)
[2021-11-28 09:39] LABS: Vitamin D,25 Hydroxy 44.7 ng/mL
[2021-11-28 09:52] LABS: Anion Gap 5 (5-15); BUN 12 mg/dL (7-18); BUN/Creat Ratio 18.5 RATIO (10-20); Calcium,Total 8.8 mg/dL (8.5-10.1); Chloride 108 mmol/L (98-107); Cholesterol 196 mg/dL (200); Creatinine, Serum 0.65 mg/dL (0.55-1.02); EST Glomerular Filtration Rate 92 mL/min (>60); Est Glom Filt Rate - Afr Amer 111 mL/min (>60); Glucose 112 mg/dL (74-106); High Density Lipoprotein 39 mg/dL; Potassium 3.9 mmol/L (3.5-5.1); Sodium Level 141 mmol/L (136-145); Thyroid Stim Hormone (TSH) 1.36 uIU/mL (0.358-3.74); Triglycerides 107 mg/dL; Very Low Density Lipoprotein 21 mg/dL (5-40)
== END ==
LOC: OLS.WHLTSB 05:00
PROVIDERS: Visit Provider Family Medicine
DX: E55.9 Vitamin D deficiency, unspecified (principal); E78.49 Other hyperlipidemia; F01.50 Vascular dementia, unspecified severity, without behavioral disturbance, psychotic disturbance, mood disturbance, and anxiety; H52.4 Presbyopia; I63.50 Cerebral infarction due to unspecified occlusion or stenosis of unspecified cerebral artery; Z96.1 Presence of intraocular lens; I10 Essential (primary) hypertension
CPT/HCPCS: 36415; 80048; 80061; 82306; 84443; 85027

== ENCOUNTER → 2022-02-06 | Outpatient (REF) | payer MEDICARE, SELFPAY | LOC: OLS.WHLTSB 04:30 | PROVIDERS: Visit Provider Internal Medicine | DX: J18.9 Pneumonia, unspecified organism (principal); F01.50 Vascular dementia, unspecified severity, without behavioral disturbance, psychotic disturbance, mood disturbance, and anxiety; J40 Bronchitis, not specified as acute or chronic | CPT/HCPCS: 87449 ==

== ENCOUNTER → 2022-02-24 | Outpatient (REF) | payer MEDICARE, SELFPAY ==
[2022-02-24 21:56] LABS: Color, Urine Yellow (Yellow); Glucose, Dipstick Normal (Normal); Ketone-Dipstick Negative (Negative); Leukocyte Esterase-Dipstick 100 /ul (Negative); Nitrite-Dipstick Negative (Negative); Occult Blood-Urine 50 /ul (Negative); Protein-Dipstick 15 mg/dl (Negative); Urine Bilirubin Dipstick Negative (Negative); Urine Clarity Clear (Clear); Urine Urobilinogen Normal (Normal)
== END ==
LOC: OLS.WHLTSB 16:00
PROVIDERS: Visit Provider Nurse Practitioner Adult Health
DX: N39.0 Urinary tract infection, site not specified (principal); F01.50 Vascular dementia, unspecified severity, without behavioral disturbance, psychotic disturbance, mood disturbance, and anxiety; J18.9 Pneumonia, unspecified organism
CPT/HCPCS: 81002; 87086; 87088

== ENCOUNTER → 2022-04-04 | Outpatient (CLI) | payer MEDICARE, SELFPAY ==
--- NOTE | 2022-04-04 | CYSPIN_PTH ---
PATIENT: JOSE PAGAN LOC: [facility] U#:[id number] AGE/SX: 86/F ROOM: RE04/04/[address]: Dr. Liza Nelson MD : 1935 BED: DIS: 04/04/2022 SPEC #: [id number] RECD: 04/05/22 09:50 STATUS: ROSALINDA HAMPTON #: [id number] JAIR: 04/04/22 00:[address]: Liza Nelson DEPT: CYTOLOGY RECD BY: Guerita Fournier Tissues: Urine Procedures: Pap Stain (control) Special Stain Group II Cytospin Fluid HEADER OPERATION: Not noted PRE-OP DIAGNOSIS: Gross hematuria TISSUE SUBMITTED: Urine for cytology DIAGNOSIS CYTOLOGY Urine for cytology (cytospin): Negative for high-grade urothelial carcinoma (NHGUC), Amena System Category II. See comment. PINA:deisy 04/06/2022 COMMENT Red blood cells are noted in the specimen. The Amena System for urine cytology diagnostic categorization was used in the evaluation of this case. CYTOLOGY STUDY Slides are reviewed. CYTOLOGY GROSS Received is 50 ml of yellow cloudy fluid labeled with the patient's name and and designated per the requisition as urine. Submitted for cytology preparation. / deisy 04/05/2022 TC:5 CPT: 10854
[2022-04-04 17:55] LABS: Cytology, Body Fluid / CSF SEE PATHOLOGY REPORT
== END | disposition home or self-care (01) ==
PROVIDERS: Visit Provider Urology
DX: R31.0 Gross hematuria (principal)
CPT/HCPCS: 88108; 88313

== ENCOUNTER → 2022-04-05 | Outpatient (REF) | payer MEDICARE, SELFPAY ==
[2022-04-05 10:03] LABS: Anion Gap 7 (5-15); BUN 9 mg/dL (7-18); BUN/Creat Ratio 14.5 RATIO (10-20); Calcium,Total 8.5 mg/dL (8.5-10.1); Chloride 106 mmol/L (98-107); Creatinine, Serum 0.62 mg/dL (0.55-1.02); EST Glomerular Filtration Rate 97 mL/min (>60); Est Glom Filt Rate - Afr Amer 117 mL/min (>60); Glucose 103 mg/dL (74-106); Potassium 4.2 mmol/L (3.5-5.1); Sodium Level 140 mmol/L (136-145)
== END ==
LOC: OLS.WHLTSB 05:00
PROVIDERS: Visit Provider Internal Medicine
DX: N32.81 Overactive bladder (principal); Z79.899 Other long term (current) drug therapy
CPT/HCPCS: 36415; 80048

== ENCOUNTER → 2022-04-24 | Outpatient (CLI) | payer MEDICARE, SELFPAY ==
--- NOTE | 2022-04-24 08:11 | CT_ITS ---
STUDY: CT ABDOMEN AND PELVIS WITH AND WITHOUT CONTRAST REASON FOR EXAM: Female, 86 years old. HEMATURIA X 2 MONTHS. PRIOR CHOLECYSTECTOMY. SCOPE PROCEDURE 1 MONTH AGO PER PATIENT RADIATION DOSAGE (If Supplied By Facility): CTDIvol = ( 16.95 ) mGy, DLP = ( 2820.09 ) mGycm TECHNIQUE: Transaxial images were obtained from the dome of the diaphragm to the symphysis pubis without oral contrast. IV 100mL Isovue-300 was administered. Sagittal and coronal images were reconstructed. Individualized dose optimization techniques were used for this CT. COMPARISON: None. FINDINGS: Mild scarring at the lung bases. Coronary artery calcification. Minimally dilated central intrahepatic biliary ducts most likely secondary to the postcholecystectomy state. The patient is status post cholecystectomy. 2.7 cm cyst along the medial aspect of the left lobe of the liver. This is unchanged from prior study. Normal spleen. There is diffuse atrophy of the pancreas. Normal bilateral adrenal glands. Normal right kidney. Normal left kidney. Normal visualized stomach. Normal small intestine. There are multiple colonic diverticula consistent with diverticulosis. The patient is status post appendectomy. There is diffuse atherosclerotic calcification of the abdominal aorta and its major visceral branches, without a demonstrated aneurysm. Normal inferior vena cava. Normal retroperitoneum. Minimal amount of air is seen within the bladder anteriorly. This may be related to attempted ARRIOLA catheter insertion. Normal abdominal wall. Minimal anterior listhesis of L4 on L5. Disc space narrowing at the L4-L5 and L5-S1 levels. CT/CT Abd/Pelvis W/WO Contrast IMPRESSION: Status post cholecystectomy and appendectomy. Minimally dilated central intrahepatic biliary ducts. Stable small cyst in the left lobe of the liver. Sigmoid diverticulosis. Electronically Signed: Fransisco Terrell MD at 11:30 EST ,
== END | disposition home or self-care (01) ==
PROVIDERS: PCP Internal Medicine; Referring Provider Urology; Visit Provider Urology
DX: R31.9 Hematuria, unspecified (principal); Z90.49 Acquired absence of other specified parts of digestive tract
CPT/HCPCS: 74178; Q9967

== ENCOUNTER → 2022-05-29 | Outpatient (REF) | payer MEDICARE, SELFPAY ==
[2022-05-29 08:44] LABS: Hematocrit 43.4 % (37-47); Hemoglobin 13.6 g/dL (12.0-15.0); Mean Corp Hgb Conc 31.3 g/dL (32-36); Mean Corpuscular Hgb 27.8 pg (27.0-32.0); Mean Corpuscular Volume 88.6 fL (81-99); Mean Platelet Vol. 10.2 fl (6.2-12.0); Platelet Count 202 K/mm3 (150-450); RBC Distribution Width CV 15.1 % (11.6-14.6); RBC Distribution Width SD 48.8 fl (35.1-43.9); White Blood Count 4.2 K/mm3 (4.4-11.0)
[2022-05-29 08:59] LABS: Vitamin D,25 Hydroxy 44.2 ng/mL
[2022-05-29 09:08] LABS: Anion Gap 4 (5-15); BUN 11 mg/dL (7-18); BUN/Creat Ratio 19.4 RATIO (10-20); Calcium,Total 8.5 mg/dL (8.5-10.1); Chloride 108 mmol/L (98-107); Cholesterol 188 mg/dL (200); Creatinine, Serum 0.57 mg/dL (0.55-1.02); EST Glomerular Filtration Rate 107 mL/min (>60); Est Glom Filt Rate - Afr Amer 130 mL/min (>60); Glucose 106 mg/dL (74-106); High Density Lipoprotein 36 mg/dL; Potassium 3.9 mmol/L (3.5-5.1); Sodium Level 141 mmol/L (136-145); Thyroid Stim Hormone (TSH) 2.17 uIU/mL (0.358-3.74); Triglycerides 113 mg/dL; Very Low Density Lipoprotein 23 mg/dL (5-40)
== END ==
LOC: OLS.WHLTSB 05:00
PROVIDERS: PCP Internal Medicine; Visit Provider Family Medicine
DX: I10 Essential (primary) hypertension (principal); E55.9 Vitamin D deficiency, unspecified; F01.50 Vascular dementia, unspecified severity, without behavioral disturbance, psychotic disturbance, mood disturbance, and anxiety; H52.4 Presbyopia; I63.50 Cerebral infarction due to unspecified occlusion or stenosis of unspecified cerebral artery; R26.2 Difficulty in walking, not elsewhere classified; Z96.1 Presence of intraocular lens; E78.49 Other hyperlipidemia
CPT/HCPCS: 36415; 80048; 80061; 82306; 84443; 85027

== ENCOUNTER → 2022-11-27 | Outpatient (REF) | payer MEDICARE, SELFPAY ==
[2022-11-27 09:14] LABS: Hematocrit 42.7 % (37-47); Hemoglobin 13.2 g/dL (12.0-15.0); Mean Corp Hgb Conc 30.9 g/dL (32-36); Mean Corpuscular Hgb 27.1 pg (27.0-32.0); Mean Corpuscular Volume 87.7 fL (81-99); Mean Platelet Vol. 10.4 fl (6.2-12.0); Platelet Count 210 K/mm3 (150-450); RBC Distribution Width CV 15.5 % (11.6-14.6); RBC Distribution Width SD 49.4 fl (35.1-43.9); Red Blood Count 4.87 M/mm3 (4.2-5.4); White Blood Count 4.8 K/mm3 (4.4-11.0)
[2022-11-27 09:29] LABS: Vitamin D,25 Hydroxy 40.5 ng/mL
[2022-11-27 09:52] LABS: Anion Gap 3 (5-15); BUN 12 mg/dL (7-18); BUN/Creat Ratio 20.6 RATIO (10-20); Calcium,Total 8.5 mg/dL (8.5-10.1); Chloride 107 mmol/L (98-107); Cholesterol 185 mg/dL (200); Creatinine, Serum 0.58 mg/dL (0.55-1.02); EST Glomerular Filtration Rate 104 mL/min (>60); Est Glom Filt Rate - Afr Amer 126 mL/min (>60); Glucose 110 mg/dL (74-106); High Density Lipoprotein 36 mg/dL; Sodium Level 138 mmol/L (136-145); Thyroid Stim Hormone (TSH) 1.87 uIU/mL (0.358-3.74); Triglycerides 126 mg/dL; Very Low Density Lipoprotein 25 mg/dL (5-40)
== END ==
LOC: OLS.WHLTSB 05:00
PROVIDERS: PCP Internal Medicine; Visit Provider Internal Medicine
DX: I10 Essential (primary) hypertension (principal); E55.9 Vitamin D deficiency, unspecified; F01.50 Vascular dementia, unspecified severity, without behavioral disturbance, psychotic disturbance, mood disturbance, and anxiety; H52.4 Presbyopia; I63.50 Cerebral infarction due to unspecified occlusion or stenosis of unspecified cerebral artery; Z79.899 Other long term (current) drug therapy
CPT/HCPCS: 36415; 80048; 80061; 82306; 84443; 85027

== ENCOUNTER → 2023-05-28 | Outpatient (REF) | payer MEDICARE, SELFPAY ==
[2023-05-28 09:26] LABS: Hematocrit 41.9 % (37-47); Hemoglobin 13.2 g/dL (12.0-15.0); Mean Corp Hgb Conc 31.5 g/dL (32-36); Mean Corpuscular Hgb 27.2 pg (27.0-32.0); Mean Corpuscular Volume 86.2 fL (81-99); Mean Platelet Vol. 10.3 fl (6.2-12.0); Platelet Count 226 K/mm3 (150-450); RBC Distribution Width CV 15.5 % (11.6-14.6); Red Blood Count 4.86 M/mm3 (4.2-5.4); White Blood Count 5.5 K/mm3 (4.4-11.0)
[2023-05-28 09:41] LABS: Vitamin D,25 Hydroxy 39.2 ng/mL
[2023-05-28 09:48] LABS: Anion Gap 5 (5-15); BUN 8 mg/dL (7-18); BUN/Creat Ratio 13.3 RATIO (10-20); Calcium,Total 8.7 mg/dL (8.5-10.1); Chloride 106 mmol/L (98-107); Cholesterol 187 mg/dL (200); EST Glomerular Filtration Rate 100 mL/min (>60); Est Glom Filt Rate - Afr Amer 121 mL/min (>60); Glucose 103 mg/dL (74-106); High Density Lipoprotein 36 mg/dL; Sodium Level 139 mmol/L (136-145); Thyroid Stim Hormone (TSH) 2.65 uIU/mL (0.358-3.74); Triglycerides 130 mg/dL; Very Low Density Lipoprotein 26 mg/dL (5-40)
== END ==
LOC: OLS.WHLTSB 05:00
PROVIDERS: PCP Internal Medicine; Visit Provider Internal Medicine
DX: I10 Essential (primary) hypertension (principal); E55.9 Vitamin D deficiency, unspecified; E78.49 Other hyperlipidemia
CPT/HCPCS: 36415; 80048; 80061; 82306; 84443; 85027

== ENCOUNTER → 2023-09-11 | Outpatient (REF) | payer MEDICARE, SELFPAY ==
[2023-09-11 08:05] LABS: Hematocrit 45.4 % (37-47); Hemoglobin 14.4 g/dL (12.0-15.0); Mean Corp Hgb Conc 31.7 g/dL (32-36); Mean Corpuscular Volume 85.2 fL (81-99); Mean Platelet Vol. 10.2 fl (6.2-12.0); Platelet Count 208 K/mm3 (150-450); RBC Distribution Width CV 15.7 % (11.6-14.6); RBC Distribution Width SD 48.9 fl (35.1-43.9); Red Blood Count 5.33 M/mm3 (4.2-5.4)
[2023-09-11 08:23] LABS: ALB/GLOB Ratio 0.6 RATIO (0.9-2.4); AST(SGOT) 20 U/L (15-37); Alanine Aminotransfer ALT/SGPT 18 U/L (13-56); Albumin, Serum 2.8 g/dL (3.2-5.0); Alkaline Phosphatase 82 U/L (45-117); Anion Gap 5 (5-15); BUN 9 mg/dL (7-18); Calcium,Total 8.6 mg/dL (8.5-10.1); Chloride 105 mmol/L (98-107); Creatinine, Serum 0.64 mg/dL (0.55-1.02); EST Glomerular Filtration Rate 92 mL/min (>60); Est Glom Filt Rate - Afr Amer 112 mL/min (>60); Globulin 4.6 g/dL (2.2-4.2); Glucose 107 mg/dL (74-106); Potassium 3.7 mmol/L (3.5-5.1); Protein, Total 7.4 g/dL (6.4-8.2); Sodium Level 139 mmol/L (136-145); T4 Free Direct 1.32 ng/dL (0.76-1.46); Thyroid Stim Hormone (TSH) 0.96 uIU/mL (0.358-3.74)
== END ==
LOC: OLS.WHLTSB 04:00
PROVIDERS: PCP Internal Medicine; Referring Provider Internal Medicine; Visit Provider Internal Medicine
DX: I10 Essential (primary) hypertension (principal)
CPT/HCPCS: 36415; 80053; 84439; 84443; 85027

== ENCOUNTER → 2023-11-26 05:00 | Outpatient (REF) | payer MEDICARE, SELFPAY ==
[2023-11-26 09:18] LABS: Hemoglobin 13.2 g/dL (12.0-15.0); Mean Corp Hgb Conc 31.4 g/dL (32-36); Mean Corpuscular Volume 86.1 fL (81-99); Mean Platelet Vol. 11.1 fl (6.2-12.0); Platelet Count 227 K/mm3 (150-450); RBC Distribution Width CV 15.9 % (11.6-14.6); Red Blood Count 4.88 M/mm3 (4.2-5.4); White Blood Count 6.3 K/mm3 (4.4-11.0)
[2023-11-26 09:34] LABS: Vitamin D,25 Hydroxy 35.9 ng/mL
[2023-11-26 09:40] LABS: Anion Gap 4 (5-15); BUN 13 mg/dL (7-18); Calcium,Total 8.7 mg/dL (8.5-10.1); Chloride 104 mmol/L (98-107); Cholesterol 174 mg/dL (200); Creatinine, Serum 0.57 mg/dL (0.55-1.02); EST Glomerular Filtration Rate 107 mL/min (>60); Est Glom Filt Rate - Afr Amer 130 mL/min (>60); Glucose 101 mg/dL (74-106); High Density Lipoprotein 41 mg/dL; Potassium 3.7 mmol/L (3.5-5.1); Sodium Level 138 mmol/L (136-145); Triglycerides 89 mg/dL; Very Low Density Lipoprotein 18 mg/dL (5-40)
== END ==
LOC: OLS.WHLTSB 05:00
PROVIDERS: PCP Internal Medicine; Visit Provider Internal Medicine
DX: I10 Essential (primary) hypertension (principal); E78.49 Other hyperlipidemia
CPT/HCPCS: 36415; 80048; 80061; 82306; 84443; 85027